=== PATIENT | female | born 1995 | race Caucasian/White ===

== ENCOUNTER 2018-03-20 04:54 | Inpatient (IN) | payer MEDICAID ==
[2018-03-20] MEDS ORDERED: LACTATED RINGER'S 1,000 ML IV ×2 (05:42)
[2018-03-20] MEDS ORDERED: MISOPROSTOL 200 MCG TAB PR ×2 (06:00→19:00)
[2018-03-20] MEDS ORDERED: LIDOCAINE 1% (MPF) 30 ML INJ INJ (06:00)
[2018-03-20] MEDS ORDERED: METHYLERGONOVINE 0.2 MG INJ IM ×2 (06:00→19:00)
[2018-03-20] MEDS ORDERED: BUTORPHANOL 2 MG INJ IV (06:00)
[2018-03-20] MEDS ORDERED: OXYTOCIN 30 UNITS/LR 500 ML IV ×3 (06:00→19:00)
[2018-03-20] MEDS ORDERED: AMPICILLIN 2 GM/NS (PMX) 100 ML IV (06:00)
[2018-03-20] MEDS ORDERED: BUTORPHANOL 1 MG INJ IV (06:00)
[2018-03-20] MEDS ORDERED: CARBOPROST 250 MCG INJ IM ×2 (06:00→19:00)
[2018-03-20] MEDS: LACTATED RINGER'S 1,000 ML IV ×4 (06:12→22:46)
[2018-03-20 06:32] LABS: ADD MAN DIFF? NO
[2018-03-20 06:37] LABS: BASOPHILS % 0.4 % (0.0-2.0); EOSINOPHILS # 0.1 10^3/ul (0.0-0.5); EOSINOPHILS % 1.2 % (0.0-7.0); HEMATOCRIT 37.7 % (37.0-47.0); HEMOGLOBIN 12.2 g/dl (12.0-16.0); LYMPHOCYTES # 1.5 10^3/ul (0.8-2.9); LYMPHOCYTES % 18.6 % (18.0-55.0); MEAN CORPUSCULAR HEMOGLOBIN 28.8 pg (29.0-33.0); MEAN CORPUSCULAR HGB CONC 32.4 g/dl (32.0-37.0); MEAN CORPUSCULAR VOLUME 88.9 fl (72.0-104.0); MEAN PLATELET VOLUME 10.6 fl (7.4-10.4); MONOCYTE # 0.7 10^3/ul (0.3-0.9); MONOCYTES % 8.9 % (0.0-13.0); NEUTROPHIL # 5.7 10^3/ul (1.6-7.5); NEUTROPHILS % 70.4 % (30.0-74.0); PLATELET COUNT 303 10^3/UL (140-415); RED BLOOD COUNT 4.24 10^6/ul (4.20-5.40); RED CELL DISTRIBUTION WIDTH 14.2 % (11.5-14.5)
[2018-03-20 07:06] LABS: INR 0.87; PROTIME 11.9 Sec (11.9-14.9); PT RATIO 0.9
[2018-03-20 07:32] LABS: HEPATITIS B SURFACE ANTIGEN NEGATIVE (NEGATIVE)
[2018-03-20] MEDS ORDERED: FENTAnyl 2MCG/ML-ROPIV 0.2% 100 ML (07:41)
[2018-03-20] MEDS ORDERED: NALOXONE (0.4 MG/ML) INJ IV (09:30)
[2018-03-20] MEDS ORDERED: ONDANSETRON 4 MG INJ IV ×2 (09:30→19:00)
[2018-03-20] MEDS ORDERED: TRIMETHOBENZAMIDE 100 MG/ML VIAL IM (09:30)
[2018-03-20] MEDS ORDERED: DIPHENHYDRAMINE 50 MG INJ IV ×2 (09:30→19:00)
[2018-03-20] MEDS: OXYTOCIN 30 UNITS/LR 500 ML IV ×2 (09:46→18:28)
[2018-03-20] MEDS ORDERED: AMPICILLIN 1 GM/NS (PMX) 50 ML IV (10:00)
[2018-03-20] MEDS: FENTAnyl 2MCG/ML-ROPIV 0.2% 100 ML BAG EPI (14:36)
[2018-03-20 17:26] LABS: RAPID PLASMA REAGIN NONREACTIVE (NR)
[2018-03-20] MEDS ORDERED: LACTATED RINGER'S 1,000 ML IV* (18:33)
[2018-03-20] MEDS ORDERED: DEXTROSE 5%-LR 1,000 ML IV (18:33)
[2018-03-20] MEDS ORDERED: DIBUCAINE 1% 30 GM OINT PR (19:00)
[2018-03-20] MEDS ORDERED: BENZOCAINE 20% 56 ML SPRAY TOP (19:00)
[2018-03-20] MEDS ORDERED: WITCH HAZEL/GLYCERIN PAD PR (19:00)
[2018-03-20] MEDS ORDERED: ZOLPIDEM 5 MG TAB PO (19:00)
[2018-03-20] MEDS ORDERED: OXYCODONE/ASPIRIN (4.88/325) TAB PO (19:00)
[2018-03-20] MEDS ORDERED: SENNA/DOCUSATE NA (8.6MG/50MG) TAB PO (19:00)
[2018-03-20] MEDS ORDERED: ACETAMINOPHEN 325 MG TAB PO (19:00)
[2018-03-20] MEDS: IBUPROFEN 600 MG TAB PO (19:56)
[2018-03-21 00:27] LABS: AMPHETAMINE/METHAMPHETAMINE Negative (NEGATIVE); BARBITURATES Negative (NEGATIVE); BENZODIAZEPINES Negative (NEGATIVE); CANNABINOIDS Negative (NEGATIVE); COCAINE Negative (NEGATIVE); OPIATES Negative (NEGATIVE)
[2018-03-21] MEDS: IBUPROFEN 600 MG TAB PO ×4 (02:32→19:30)
[2018-03-21 06:58] LABS: ADD MAN DIFF? NO
[2018-03-21 07:36] LABS: WHITE BLOOD COUNT 12.3 10^3/ul (4.8-10.8)
[2018-03-21 07:36] LABS: BASOPHILS % 0.3 % (0.0-2.0); EOSINOPHILS # 0.1 10^3/ul (0.0-0.5); EOSINOPHILS % 0.6 % (0.0-7.0); HEMATOCRIT 31.1 % (37.0-47.0); HEMOGLOBIN 10.1 g/dl (12.0-16.0); LYMPHOCYTES # 1.6 10^3/ul (0.8-2.9); LYMPHOCYTES % 13.1 % (18.0-55.0); MEAN CORPUSCULAR HEMOGLOBIN 28.7 pg (29.0-33.0); MEAN CORPUSCULAR HGB CONC 32.5 g/dl (32.0-37.0); MEAN CORPUSCULAR VOLUME 88.4 fl (72.0-104.0); MONOCYTE # 1.1 10^3/ul (0.3-0.9); MONOCYTES % 8.6 % (0.0-13.0); NEUTROPHIL # 9.5 10^3/ul (1.6-7.5); NEUTROPHILS % 76.8 % (30.0-74.0); PLATELET COUNT 257 10^3/UL (140-415); RED BLOOD COUNT 3.52 10^6/ul (4.20-5.40); RED CELL DISTRIBUTION WIDTH 14.1 % (11.5-14.5)
[2018-03-21] MEDS: LANOLIN 7 GM TUBE TOP (18:11)
[2018-03-22] MEDS: IBUPROFEN 600 MG TAB PO ×3 (00:18→12:43)
[2018-03-22] MEDS ORDERED: MEASLES,MUMPS,RUBELLA VACCINE INJ SC* (09:00)
[2018-03-22] MEDS: DIPHTH/TET/ACEL PERTUSS (ADULT) 0.5 ML VIAL IM* (12:44)
[2018-03-24 11:57] LABS: RUBELLA ANTIBODY - IGG 6.12 index; RUBELLA ANTIBODY - IGM <20.00 AU/mL
== END 2018-03-22 14:10 | disposition home or self-care (01) | DRG 775 ==
LOC: OBT 04:54 → PP1 03-21 16:05 → L-D 04:55 → OBT 06:07 → L-D 06:09
PROVIDERS: Obstetrics & Gynecology
PROC: 10E0XZZ Delivery of Products of Conception, External Approach (ICD-10-PCS; principal; 2018-03-20)
DX: O80 Encounter for full-term uncomplicated delivery (principal); Z3A.41 41 weeks gestation of pregnancy; Z37.0 Single live birth
CPT/HCPCS: 36415; 62319; 76815; 80307; 82962; 85025; 85610; 85730; 86592; 86762; 86850; 86900; 86901; 87340; 90715